=== PATIENT | male | born 1995 | race Caucasian/White ===

== ENCOUNTER 2018-07-05 01:01 | Emergency (ER) | payer SELFPAY ==
[~2018-07-05] VITALS: Ht 185.4 cm; Wt 79.5 kg
[2018-07-05 01:07] VITALS: BP 119/93; TEMP 97.3
[2018-07-05 02:45] VITALS: PULSE 122
== END 2018-07-05 02:45 | disposition home or self-care (01) ==
LOC: COL.ER 01:01
DX: S00.83XA Contusion of other part of head, initial encounter (principal); S00.03XA Contusion of scalp, initial encounter; S50.312A Abrasion of left elbow, initial encounter; F10.129 Alcohol abuse with intoxication, unspecified; Y04.8XXA Assault by other bodily force, initial encounter

== ENCOUNTER 2019-09-27 09:08 | Emergency (ER) | payer OTHER ==
[~2019-09-27] VITALS: Ht 182.9 cm; Wt 86.4 kg
[2019-09-27 09:14] VITALS: TEMP 98.2
[2019-09-27 09:48] LABS: BASO % 0.3 % (0.0-2.0); EOS % 0.1 % (0-4.0); GRAN # 6.7 (1.4-6.5); HEMATOCRIT 47.5 % (42.0-52.0); HEMOGLOBIN 16.4 g/dl (13.5-18.0); LYMPH # 2.2 (1.2-3.4); LYMPH % 21.9 % (20.0-51.0); MEAN CELL VOLUME 88 fl (80.0-100.0); MEAN CORPUSCULAR HEMOGLOBIN 30 pg (27.0-31.0); MEAN CORPUSCULAR HGB CONC 35 g/dl (33.0-37.0); MEAN PLATELET VOLUME 9.1 fl (7.4-10.4); MONO % 10.3 % (1.7-9.3); PLATELET COUNT 303 K/mm3 (130-400); RED BLOOD COUNT 5.39 M/mm3 (4.20-5.60)
[2019-09-27 09:59] LABS: ALANINE AMINOTRANSFERASE 30 U/L (4-49); ALKALINE PHOSPHATASE 81 U/L (50-136); ANION GAP 12 mmol/L (7-16); AST,SGOT 27 U/L (15-37); BILIRUBIN,TOTAL 0.9 mg/dL (0.0-1.0); BLOOD UREA NITROGEN 13 mg/dL (9-20); CALCIUM 9.9 mg/dL (8.4-10.2); CARBON DIOXIDE 27 mmol/L (22-30); CHLORIDE 100 mmol/L (98-107); CREATININE, serum 1.12 (0.66-1.25); GLUCOSE 119 mg/dL (74-106); POTASSIUM 3.9 mmol/L (3.4-5.0); SODIUM 139 mmol/L (137-145); TOTAL PROTEIN 8.5 gm/dL (6.4-8.2)
[2019-09-27 10:23] LABS: TROPONIN-I < 0.012 ng/mL (0.000-0.035)
[2019-09-27] MEDS ORDERED: ATIVAN 1MG T1 MG/TAB PO (10:58)
[2019-09-27 11:30] VITALS: BP 127/76; PULSE 66
== END 2019-09-27 11:30 | disposition home or self-care (01) ==
LOC: COL.ER 09:08
PROVIDERS: Physician Assistant
DX: R07.89 Other chest pain (principal); F41.9 Anxiety disorder, unspecified
CPT/HCPCS: J2060; J2405; J7030